=== PATIENT | female | born 1980 ===

== ENCOUNTER 2025-07-08 12:37 | Inpatient (IN) | payer OTHER ==
[~2025-07-08] VITALS: Ht 157.5 cm; Wt 54.4 kg
[2025-07-08 12:15] LABS: BASO % 0.4 % (0.1-1.2); EOS # 0.07 (0.04-0.54); EOS % 1.4 % (0.7-7.0); LYMPH # 1.14 (1.18-3.74); LYMPH % 22.1 % (19.3-53.1); MEAN PLATELET VOLUME 11.70 fl (9.4-12.4); MONO # 0.48 (0.24-0.82); MONO % 9.3 % (4.7-12.5); NEUT # 3.46 (1.56-6.13); NEUT % 66.8 % (34.0-71.1); RED CELL DISTRIBUTION WIDTH 13.4 % (11.6-14.4)
[2025-07-08 12:38] LABS: URINE APPEARANCE Clear; URINE BILIRRUBIN Negative (NEGATIVE); URINE BLOOD Negative; URINE COLOR Yellow; URINE GLUCOSE Negative (NEGATIVE); URINE KETONE Negative (NEGATIVE); URINE LEUKOCYTE Negative; URINE NITRATE Negative; URINE PROTEIN Negative (NEGATIVE); URINE UROBILINOGEN 0.2 E.U./dl
[2025-07-08 12:38] LABS: INR 1.02
[2025-07-08 12:40] LABS: URINE BACTERIA 21.5 uL (0.0-1933); URINE EPITHELIAL CELLS 5.9 uL (0.0-38.8)
[2025-07-08 12:42] LABS: URINE CAST 0.00 uL (0.0-1.40); URINE RBC 0.8 uL (0.0-20.8); URINE WBC 0.4 uL (0.0-23.2)
[2025-07-08 12:43] VITALS: BP 132/93
[2025-07-08] MEDS ORDERED: OLUMIANT PO (12:43)
[2025-07-08 13:06] LABS: ALT/SGPT 17.0 U/L (12-78); AST/SGOT 14.0 U/L (15-37); BILIRUBIN TOTAL 0.61 mg/dL (0.3-1.2); BUN CREA RATIO 16.0 (7.0-25.0); CREATININE SERUM 0.61 mg/dL (0.55-1.02); GFR 106.06; GLOBULINA 3.4 G/DL (2.4-3.5); GLUCOSE FASTING 78.0 mg/dL (65-100); OSMOLALITY SERUM 281.0 MOSM/KG (275-295)
[2025-07-13] MEDS ORDERED: CEFAZOLIN SODIUM 1,000 MG VIAL ONE (08:27)
[2025-07-13] MEDS ORDERED: POVIDONE-IODINE 118 ML BOTT TOP ONE (09:55)
[2025-07-13] MEDS ORDERED: SUGAMMADEX SODIUM 200 MG/2 ML VIAL IV ONE (10:51)
[2025-07-13] MEDS ORDERED: PROMETHAZINE HCL 25 MG/ML AMPUL IV SCH (12:19)
[2025-07-13] MEDS ORDERED: GABAPENTIN 600 MG TABLET PO SCH (13:00)
[2025-07-13] MEDS ORDERED: ONDANSETRON HCL 2 MG/ML VIAL ONE (14:10)
[2025-07-13] MEDS ORDERED: ONDANSETRON HCL 2 MG/ML VIAL IV ONE (14:15)
[2025-07-13 15:13] VITALS: BP 102/67
[2025-07-13 15:14] VITALS: BP 102/67
[2025-07-13 16:14] LABS: BASO % 0.1 % (0.1-1.2); EOS # 0.00 (0.04-0.54); EOS % 0.0 % (0.7-7.0); LYMPH # 0.35 (1.18-3.74); LYMPH % 2.2 % (19.3-53.1); MEAN PLATELET VOLUME 11.20 fl (9.4-12.4); MONO # 1.08 (0.24-0.82); MONO % 6.7 % (4.7-12.5); NEUT # 14.60 (1.56-6.13); NEUT % 90.8 % (34.0-71.1); RED CELL DISTRIBUTION WIDTH 13.4 % (11.6-14.4)
[2025-07-13] MEDS ORDERED: MORPHINE SULFATE 4 MG/ML VIAL IV SCH (17:00)
[2025-07-13] MEDS ORDERED: POLYETHYLENE GLYCOL 3350 17 GM BLIST.PACK PO SCH (21:00)
[2025-07-14 00:06] VITALS: BP 107/65
[2025-07-14] MEDS ORDERED: POLYETHYLENE GLYCOL 3350 17 GM BLIST.PACK PO SCH (05:00)
[2025-07-14] MEDS ORDERED: SIMETHICONE 125 MG CAPSULE PO SCH (05:00)
[2025-07-14 07:28] VITALS: BP 120/73
[2025-07-14 13:07] VITALS: BP 128/80
[2025-07-14 22:10] VITALS: BP 125/80
[2025-07-15 01:21] VITALS: BP 113/76
[2025-07-15] MEDS ORDERED: NEURONTIN600 MG PO (06:50)
[2025-07-15] MEDS ORDERED: IBUPROFEN800 MG PO (06:51)
[2025-07-15] MEDS ORDERED: SIMETHICONE125 M1 PO (06:51)
[2025-07-15] MEDS ORDERED: POLY119PG PO (06:51)
[2025-07-15] MEDS ORDERED: KETOROLAC TROMETHAMINE 60 MG VIAL IM STA (07:39)
[2025-07-15 08:00] VITALS: BP 105/70
== END 2025-07-15 11:13 | disposition home or self-care (01) | DRG 743 ==
LOC: O/R 07-13 08:00 → SURH 07-13 10:55 → OB/GYN 07-13 13:27
PROVIDERS: ADMIT Obstetrics & Gynecology; ATTEND Obstetrics & Gynecology
PROC: 0UT70ZZ Resection of Bilateral Fallopian Tubes, Open Approach (ICD-10-PCS; 2025-07-13)
PROC: 0UB00ZZ Excision of Right Ovary, Open Approach (ICD-10-PCS; 2025-07-13)
PROC: 0DNW0ZZ Release Peritoneum, Open Approach (ICD-10-PCS; 2025-07-13)
PROC: 0UN90ZZ Release Uterus, Open Approach (ICD-10-PCS; 2025-07-13)
PROC: 0UT90ZZ Resection of Uterus, Open Approach (ICD-10-PCS; principal; 2025-07-13 11:30)
DX: D25.9 Leiomyoma of uterus, unspecified (principal); R10.20 Pelvic and perineal pain unspecified side; N93.9 Abnormal uterine and vaginal bleeding, unspecified